=== PATIENT | male | born 1990 | race Caucasian/White ===

== ENCOUNTER → 2020-06-06 06:32 | Outpatient (CLI) | payer BC, SELFPAY ==
--- NOTE | 2020-06-06 06:48 | MRI_ITS ---
STUDY: MRI LEFT ANKLE WITHOUT CONTRAST REASON FOR EXAM: Left ankle pain for 5 months, no specific injury, posterior tibialis tendon dysfunction. TECHNIQUE: Standardized fat and water weighted pulse sequences were obtained in all 3 orthogonal planes. COMPARISON: None. FINDINGS: There is edema in the lateral subcutis adipose space. There is a small volume of fluid in the retromalleolar and submalleolar posterior tibialis tendon sheath (inversion recovery sagittal images 4-6) and a very small partial tear of the posterior surface of the retromalleolar posterior tibialis tendon (T2 axial images 13, 14). There is mild hindfoot valgus deformity. Normal flexor digitorum longus tendon. Normal flexor hallucis longus tendon. Normal peroneus longus and brevis tendons. Normal tibialis anterior tendon. Normal extensor hallucis longus tendon. There is a very small volume of fluid in the extensor digitorum longus tendon sheath (T2 axial images 12, 13). The extensor digitorum longus tendons are morphologically normal. Normal Achilles tendon and teno-osseous insertion. Normal plantar fascia. Normal plantar calcaneal tubercles. Normal intrinsic muscles of the rearfoot. Normal distal tibiofibular syndesmotic ligamentous complex. Normal lateral ligamentous complex. There is edema in the sinus tarsi (inversion recovery sagittal images 12, 13). Normal deltoid ligamentous complexes. There is bone edema of the medial malleolus (T2 coronal images 18-20). Normal plantar calcaneonavicular (spring) ligament. There is a very small tibiotalar joint effusion (inversion recovery sagittal image 10). There is bone edema of the talar dome, body and head/neck (inversion recovery sagittal images 7-13). There is no osteochondral talar dome lesion. There is an os trigonum with mild bone edema (inversion recovery sagittal images 10, 11). There is a posterior subtalar joint effusion (inversion recovery sagittal images 10-15). There is bone edema in the posterior tuberosity and body of the calcaneus (inversion recovery sagittal images 10-16). There are dorsal osteophytes without chondral thinning of the talonavicular articulation. There is bone edema of the navicular (T2 coronal images 11, 12). Normal calcaneocuboid articulation. Normal navicular-cuneiform articulations. MRI/Lower Ext Joint Only (Routine) IMPRESSION: Very small partial tear and mild tenosynovitis of the posterior tibialis tendon. Bone edema of the medial malleolus, talus, calcaneus and navicular, a stress phenomenon. Edema in the sinus tarsi. Very mild extensor digitorum longus tenosynovitis. Os trigonum with mild bone edema. Posterior subtalar and tibiotalar joint effusions. Electronically Signed: Sam Bedoya MD at 9:58 EST Tel , Service support ,
== END ==
DX: M76.822 Posterior tibial tendinitis, left leg (principal); M25.572 Pain in left ankle and joints of left foot
CPT/HCPCS: 73721

== ENCOUNTER 2021-05-31 12:57 | Outpatient (CLI) | payer OTHER, SELFPAY ==
[2021-05-31 13:22] VITALS: BP 132/88; PULSE 98; RESP 18; TEMP 36.4; O2SAT 100; BMI 61.2
[2021-05-31] MEDS: 0.9% Saline Lock 10 ML Syringe IV (13:34)
[2021-05-31 14:25] VITALS: BP 121/72; PULSE 83; RESP 16; TEMP 36.5; O2SAT 98
[2021-05-31 15:06] VITALS: BP 124/68; PULSE 88; RESP 16; TEMP 36.3; O2SAT 98
== END 2021-05-31 15:24 | disposition home or self-care (01) ==
LOC: MS3OUT 13:01 → MS3 13:01
PROVIDERS: Referring Provider Nurse Practitioner Adult Health; Visit Provider Nurse Practitioner Adult Health
DX: Z23 Encounter for immunization (principal); U07.1 COVID-19
CPT/HCPCS: J7050; M0245; Q0245; A4216

== ENCOUNTER 2022-01-06 00:26 | Emergency (ER) | payer BC, SELFPAY ==
[2022-01-06 00:27] VITALS: BP 163/95; PULSE 118; RESP 18; TEMP 36.4; O2SAT 99; BMI 65.2
[2022-01-06] MEDS: SUMAtriptan 6 MG/0.5 ML Vial SC (01:11)
--- NOTE | 2022-01-06 01:27 | EDS_ITS ---
HPI History of Present Illness Chief Complaint: Headache Informant: patient Narrative Narrative: Nontraumatic right-sided headache since 3 PM. Photophobia and phonophobia. Mild nausea. History of similar how this is more intense. He took aspirin at home. 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 Denies any allergies. Denies any cardiac history. Prior similar symptoms: Yes [facility] Medical History COVID-19 Home Medications aspirin 81 mg tablet,delayed release (Adult Aspirin Regimen) 81 mg PO DAILY 05/30/21 [History Last Taken Unknown] dexamethasone 4 mg tablet 4 mg PO DAILY #5 tabs 05/30/21 [Rx Last Taken Unknown] Allergy/AdvReac Type Severity Reaction Status Date / Time No Known Allergies Allergy Verified 01/06/22 00:29 Social History Smoking Status: Former smoker ROS ROS ED Constitutional Constitutional ED: Denies chills, fever(s) or sweats Eyes Eyes: Denies change in vision ENT ENT ED: Denies dysphagia or sore throat Cardiovascular Cardiovascular: Denies chest pain, leg edema, palpitations or racing heartbeat Respiratory/Chest Respiratory/Chest: Denies cough, dyspnea or dyspnea on exertion Gastrointestinal Gastrointestinal: Reports nausea; Denies abdominal pain, diarrhea or vomiting Genitourinary Genitourinary ED: Denies dysuria, hematuria or urinary frequency Musculoskeletal Musculoskeletal: Denies back pain, extremity pain or neck pain Integumentary Denies rash or wounds Neurologic Neurologic: Reports headache(s); Denies paresthesias or weakness EXAM Physical Exam Const Vital Signs: 01/06/22 00:27 Temperature 97.5 F L Temperature Source Oral Pulse Rate 118 H Respiratory Rate 18 Blood Pressure 163/95 H Blood Pressure Mean 117 Pulse Ox 99 Oxygen Delivery Method Room Air Positive well nourished and well developed General Appearance ED: well developed and NAD HEENT Reports moist mucous membranes normocephalic and atraumatic Eyes PERRL, EOMs intact bilaterally and conjunctivae normal Eyes Narrative: reports able to see light emesis right eye which is normal for him. General Eye ED: Yes normal appearance of both eyes Neck no lymphadenopathy, supple and no meningeal signs Neck Narrative: No meningismus. General: Negative for tenderness Chest Wall Chest: Negative for tenderness Resp normal respiratory effort and normal air movement Effort and Inspection: symmetric chest movement; Negative for respiratory distress Cardio regular rate, regular rhythm and no murmurs Peripheral Pulses: pulses 2+ throughout GI normal to inspection, nondistended, normoactive bowel sounds and non-tender Palpation: Negative for guarding or rebound tenderness present Back/Spine no CVA tenderness and no thoracic nor lumbar tenderness Extremity normal to inspection General Extremety ED: Negative for edema or tenderness General Extremity: Negative for edema Neuro oriented x3, CN's II-XII intact bilaterally and no sensory deficits noted Sensorium / Orientation: awake and alert Skin no rashes or lesions noted and no wounds MDM MDM MDM Narrative Medical decision making narrative: Patient with no focal deficits no meningismus. Migraine type symptoms. Discussed Imitrex which he agreed. This was ordered and given. 0136: Reevaluation he reports pain currently not on his right side however is mo re in the center going to the back. States more intense there. Not tolerable. IV be placed, will give Reglan and Benadryl with IV fluids. Will reevaluate. 0250: Reeval headache much better. Patient currently without a ride we will continue to observe for sedation effects prior to discharge. 0510: Continues to have improvement of headache. Patient not currently sleepy. He will be discharged with outpatient follow-up. Discharge Plan Triage Chief Complaint: Headache ED Provider: Thomas Adams Dx/Rx/DC Orders Clinical Impression: Headache, Hypertension Instructions: ED Headache Unspecified Prescriptions: No Action aspirin [Adult Aspirin Regimen] 81 mg tablet,delayed release (DR/EC) 81 mg PO DAILY dexamethasone 4 mg tablet 4 mg PO DAILY Qty: 5 0RF Primary Care Provider: Care Physician,No Primary Referrals: Care Physician,No Primary [Primary Care Provider] - Disposition Disposition: Home, Self Care
[2022-01-06] MEDS: 0.9% Normal Saline 1,000 ML 999 ML IV (01:47)
[2022-01-06] MEDS: DiphenhydrAMINE 50 MG/ML Syringe 25 MG IV (01:50)
[2022-01-06] MEDS: Metoclopramide 10 MG/2 ML Vial IV (01:51)
[2022-01-06 05:12] VITALS: BP 134/84; PULSE 80; RESP 16; O2SAT 98
== END 2022-01-06 05:15 | disposition home or self-care (01) ==
PROVIDERS: Emergency Provider Emergency Medicine; Visit Provider Emergency Medicine
DX: R51.9 Headache, unspecified (principal); Z87.891 Personal history of nicotine dependence; Z86.16 Personal history of COVID-19; I10 Essential (primary) hypertension; R11.0 Nausea; H53.149 Visual discomfort, unspecified; Z79.82 Long term (current) use of aspirin
CPT/HCPCS: 96361; 96372; 96374; 96375; 99283; J7030; A4216; J3030